=== PATIENT | male | born 1965 | race Caucasian/White ===

== ENCOUNTER 2019-11-23 15:36 | Emergency (ER) | payer BC, OTHER ==
[2019-11-23] MEDS ORDERED: NORMAL SALINE 1000 ML 1,000 ML IV ONE (16:08)
--- NOTE | 2019-11-23 16:09 | ER Document Report ---
ED Medical Screen (RME) - General Chief Complaint: Lower Abdominal Pain Stated Complaint: LOWER ABDOMINAL PAIN Time Seen by Provider: 11/23/19 16:06 Mode of Arrival: Ambulatory Information source: Patient Notes: 54-year-old male presents to ED for left lower quadrant abdominal pain. He states he has not had any nausea vomiting or diarrhea. He states it feels exactly the same as when he had diverticulitis last time. He is alert oriented respirations regular and unlabored speaking in full sentences. He states he has not had any fevers. He states he did have a colonoscopy in January. He states he does not smoke but he does drink daily. He denies any illicit drugs. He states it is a sharp cramping pain to his left lower quadrant. I have greeted and performed a rapid initial assessment of this patient. A comprehensive ED assessment and evaluation of the patient, analysis of test results and completion of medical decision making process will be conducted by an additional ED providers. - Related Data Allergies/Adverse Reactions: No Known Allergies Allergy (Verified 11/23/19 15:57) Past Medical History - Social History Chew tobacco use (# tins/day): No Frequency of alcohol use: Social Drug Abuse: None Physical Exam - Vital signs Vitals: Temp Pulse Resp BP Pulse Ox 98.6 F 65 16 162/100 H 98 11/23/19 15:41 11/23/19 15:41 11/23/19 15:41 11/23/19 15:41 11/23/19 15:41 Course - Vital Signs Vital signs: Temp Pulse Resp BP Pulse Ox 98.6 F 65 16 162/100 H 98 11/23/19 15:57 11/23/19 15:41 11/23/19 15:41 11/23/19 15:41 11/23/19 15:41
[2019-11-23 16:48] LABS: ABSOLUTE BASOPHILS # (AUTO) 0.1 10^3/uL (0.0-0.2); ABSOLUTE EOSINOPHILS # (AUTO) 0.1 10^3/uL (0.0-0.6); ABSOLUTE MONOCYTES (AUTO) 0.7 10^3/uL (0.1-1.4); BASOPHILS % (AUTO) 0.9 % (0-2); EOSINOPHILS % (AUTO) 0.7 % (0-6); TOTAL CELLS COUNTED % (AUTO) 100 %
[2019-11-23 16:52] LABS: ABSOLUTE LYMPHOCYTES (AUTO) 1.2 10^3/uL (0.5-4.7); ABSOLUTE NEUT (AUTO) 6.4 10^3/uL (1.7-8.2); HEMATOCRIT 45.1 % (37.9-51.0); LYMPHOCYTES % (AUTO) 14.8 % (13-45); MEAN CORPUSCULAR HEMOGLOBIN 34.3 pg (27.0-33.4); MEAN CORPUSCULAR HGB CONC 35.5 g/dL (32.0-36.0); MEAN CORPUSCULAR VOLUME 97 fl (80-97); MONOCYTES % (AUTO) 8.1 % (3-13); PLATELET COUNT 206 10^3/uL (150-450); RED BLOOD COUNT 4.67 10^6/uL (4.35-5.55); RED CELL DISTRIBUTION WIDTH 13.4 % (11.5-14.0); SEGMENTED NEUTROPHILS % (AUTO) 75.5 % (42-78); WHITE BLOOD COUNT 8.4 10^3/uL (4.0-10.5)
[2019-11-23 17:16] LABS: ALBUMIN 4.3 g/dL (3.5-5.0); ALKALINE PHOSPHATASE 50 U/L (38-126); ANION GAP 7 (5-19); ASPARTATE AMINO TRANSFERASE 32 U/L (17-59); BILIRUBIN,TOTAL 0.6 mg/dL (0.2-1.3); BLOOD UREA NITROGEN 25 mg/dL (7-20); CALCIUM 9.9 mg/dL (8.4-10.2); CARBON DIOXIDE 29 mmol/L (22-30); CHLORIDE 105 mmol/L (98-107); GLUCOSE 78 mg/dL (75-110); POTASSIUM 4.5 mmol/L (3.6-5.0); TOTAL PROTEIN 7.2 g/dL (6.3-8.2)
[2019-11-23] MEDS ORDERED: CIPROFLOXACIN 400 MG/D5W RTU 400 MG/200 ML RTUPB IV ONE (17:40)
[2019-11-23] MEDS ORDERED: METRONIDAZOLE 500 MG TABLET PO ONE (17:40)
--- NOTE | 2019-11-23 17:45 | ER Document Report ---
ED General - General Chief Complaint: Lower Abdominal Pain Stated Complaint: LOWER ABDOMINAL PAIN Time Seen by Provider: 11/23/19 16:06 Mode of Arrival: Ambulatory - [facility] Notes: 54-year-old male history of inguinal hernia surgery b/l, prior presumed diverticulitis diagnosis approximately 1 year ago that resolved with medical management presents with 2 days of gradual onset gradually worsening constant s evere left lower quadrant pain without radiation, exacerbating or alleviating factors, or associated symptoms similar to prior diverticulitis pain. Patient denies fever, nausea vomiting, diarrhea/constipation, melena/diarrhea blood per rectum, immune compromise, urinary symptoms, genital symptoms, trauma, dizziness, syncope, flank pain - Related Data Allergies/Adverse Reactions: No Known Allergies Allergy (Verified 11/23/19 15:57) Past Medical History - General Information source: Patient - Social History Smoking Status: Never Smoker Chew tobacco use (# tins/day): No Frequency of alcohol use: Social Drug Abuse: None Family History: Reviewed & Not Pertinent Patient has homicidal ideation: No Review of Systems - Review of Systems Notes: REVIEW OF SYSTEMS: CONSTITUTIONAL : Denies fever, chills, or sweats. EENT: Denies recent cold/sinus symptoms, denies throat pain CARDIOVASCULAR: Denies chest pain, [employer]: Denies cough, denies shortness of breath. GASTROINTESTINAL: +abdominal pain, -nausea/vomiting. GENITOURINARY: Denies difficulty urinating, painful urination. MUSCULOSKELETAL: Denies neck pain, back pain. SKIN: Denies rash or skin lesions. HEMATOLOGIC : Denies easy bruising or bleeding. LYMPHATIC: Denies swollen, enlarged glands. NEUROLOGICAL: Denies headache, denies change in gait. PSYCHIATRIC: Denies anxiety or stress or depression. Physical Exam - Vital signs Vitals: Temp Pulse Resp BP Pulse Ox 98.6 F 65 16 162/100 H 98 11/23/19 15:41 11/23/19 15:41 11/23/19 15:41 11/23/19 15:41 11/23/19 15:41 - Notes Notes: PHYSICAL EXAMINATION: GENERAL: Well-appearing, well-nourished and in no acute distress. HEAD: Atraumatic, normocephalic. EYES: Pupils equal round and appropriate constriction, sclera anicteric, conjunctiva are normal. ENT: nares patent, moist mucous membranes. NECK: Normal range of motion, supple without lymphadenopathy LUNGS: Breath sounds clear to auscultation bilaterally and equal. No wheezes rales or rhonchi. HEART: Regular rate and rhythm without murmurs ABDOMEN: Soft, +LLQ tenderness, no guarding, no rebound, no masses, no CVAT EXTREMITIES: Normal range of motion, no pitting or edema. No cyanosis. NEUROLOGICAL: Awake, alert, conversing appropriately, moves all extremities spontaneously. PSYCH: Normal mood, normal affect. SKIN: Warm, Dry, normal turgor, no rashes or lesions noted. Course - Re-evaluation Re-evalutation: 11/23/19 17:44 Likely diverticulitis, will obtain CT abdomen pelvis to rule out complications thereof for likely outpatient antibiotic course and to rule out alternate diagnoses including internal hernia, nephrolithiasis. Will give empiric antibiotics while patient is awaiting CAT scan, patient appears stable, no signs of acute abdomen on exam, vital signs normal except for high blood pressure likely secondary to pain but will instruct patient to follow-up blood pressure with primary doctor. 11/23/19 21:51 Possible early abscess but appropriate for trial of outpatient antibiotics as surgeon has previously stated this is not appropriate for intervention and these patients do well on p.o. antibiotics. Patient given extensive return to ED precautions which he demonstrated understanding of. Patient ready for discharge with PCP follow-up. 11/23/19 21:54 Patient informed of his high blood pressure in the ED and instructed to follow it up with primary care doctor also informed of borderline creatinine. - Vital Signs Vital signs: Temp Pulse Resp BP Pulse Ox 98.6 F 65 16 162/100 H 98 11/23/19 15:57 11/23/19 15:41 11/23/19 15:41 11/23/19 15:41 11/23/19 15:41 - Laboratory Result Diagrams: 11/23/19 16:10 11/23/19 16:10 Laboratory results interpreted by me: 11/23/19 11/23/19 11/23/19 16:10 16:10 16:10 MCH 34.3 H BUN 25 H Creatinine 1.29 H Est GFR (MDRD) Non-Af 58 L Urine Ascorbic Acid 40 H Discharge - Discharge Clinical Impression: Diverticulitis Condition: Stable Disposition: HOME, SELF-CARE Additional Instructions: Diverticulitis You have been diagnosed as having diverticulitis. This is an inflammation of a small pouch attached to the colon, called a diverticulum. Many of these small pouches can form on the colon as you get older. They are often caused by constipation. When inflamed or infected, symptoms arise -- usually abdominal pain, constipation or diarrhea, fever, and blood in the stool. Severe diverticulitis may require hospitalization. More mild cases are usually treated with antibiotics and clear liquid diet. As you improve, a diet low in residue (one which forms little stool) is prescribed. When you are better, you should eat a high-fiber diet. Stool softeners (like Metamucil) are usually recommended. Call the doctor or go to the hospital if there is increasing pain, vomiting, high fever, large amounts of blood passed, or if bowel movements c ease. Follow-up with your primary doctor within 3 days. If you worsen at any point you may need to stay in the hospital or if you have not improved after 2 days of antibiotics by mouth. Prescriptions: Ciprofloxacin HCl [Cipro 500 mg Tablet] 500 mg PO BID #20 tablet Metronidazole [Flagyl 500 mg Tablet] 500 mg PO Q8H #30 tablet
[2019-11-23 17:54] LABS: APPEARANCE,URINE SLIGHTLY-CLOUDY; BILIRUBIN,URINE NEGATIVE (NEGATIVE); COLOR,URINE YELLOW; GLUCOSE, URINE NEGATIVE (NEGATIVE); KETONES,URINE NEGATIVE (NEGATIVE); LEUKOCYTE ESTERASE,URINE NEGATIVE (NEGATIVE); NITRITE,URINE NEGATIVE (NEGATIVE); PROTEIN,URINE NEGATIVE (NEGATIVE); UROBILINOGEN,URINE NEGATIVE mg/dL (<2.0)
--- NOTE | 2019-11-23 20:41 | RADIOLOGY REPORT (SQ) ---
EXAM DESCRIPTION: CT ABDOMEN PELVIS WITH IV CONTRAST COMPLETED DATE/TME: 11/23/2019 16:06 CLINICAL HISTORY: 54 years Male Left lower abdominal pain history of diverticulitis COMPARISON: None. TECHNIQUE: Contiguous axial images obtained through the abdomen and pelvis following IV contrast. Reformatted images obtained. This exam was performed according to our department optimization program which includes automated exposure control, adjustment of the mA and/or kv according to patient size and/or use of iterative reconstruction technique. FINDINGS: The liver appears unremarkable. The spleen and pancreas appear unremarkable. No adrenal masses. The kidneys appear unremarkable. No hydronephrosis. The gallbladder is visualized. No aneurysmal dilatation of the aorta. No bowel obstruction. The appendix is unremarkable. There is diverticulosis in the colon. There is marked inflammatory change and wall thickening in the proximal sigmoid colon consistent with acute sigmoid diverticulitis. There appears to be a small developing peridiverticular or intramural abscess which measures 1.2 x 2.6 cm . IMPRESSION: Findings consistent with acute sigmoid diverticulitis with developing peridiverticular or intramural abscess
[2019-11-23 22:51] VITALS: BP 146/85
== END 2019-11-23 22:35 | disposition home or self-care (01) ==
LOC: ER 15:36
DX: K57.92 Diverticulitis of intestine, part unspecified, without perforation or abscess without bleeding (principal); R10.30 Lower abdominal pain, unspecified; R10.814 Left lower quadrant abdominal tenderness; I10 Essential (primary) hypertension
CPT/HCPCS: 99284; 96361; 96365; 96366; 36415; 87040; 85025; 80053; 81001; 74177; J7030; J0744